=== PATIENT | female | born 1930 | race Caucasian/White ===

== ENCOUNTER 2017-06-15 08:07 | Day surgery (SDC) | payer MEDICARE, OTHER ==
[~2017-06-15 08:07] MED LIST: Lactated Ringers 1,000 ML IV SCH; Lidocaine 1%/Sod Bicarbonate in NS 8.4% 1 ML Syringe IDERM PRN; Sodium Chloride 0.9% 10 ML Syringe FLUSH PRN
--- NOTE | 2017-06-15 08:26 | PCM.PREANE ---
Preanesthetic Assessment - Procedure Proposed Procedure: EGD & Colonoscopy - Anesthesia/Transfusion/Family Hx Anesthesia History: Prior Anesthesia Without Reaction Family History of Anesthesia Reaction: No Transfusion History: No Prior Transfusion(s) - Review of Systems General: No Symptoms Pulmonary: No Symptoms Cardiovascular: No Symptoms Gastrointestinal: Diarrhea, Other (GERD history, not currently ) Neurological: Numbness (left hand, ? carpal tunnel syndrome ) Other: Reports: Thyroid Problems (hypothyroidism ) - Physical Assessment NPO Status Date: 06/14/17 NPO Status Time: 22:00 Pulse: 73 O2 Sat by Pulse Oximetry: 96 Respiratory Rate: 13 Blood Pressure: 178/88 Temperature: 36.8 C Height: 1.6 m ASA Class: 2 Mental Status: Alert & Oriented x3 Airway Class: Mallampati = 3 Dentition: Reports: Normal Dentition Thyro-Mental Finger Breadths: 3 Mouth Opening Finger Breadths: 5 ROM/Head Extension: Full Lungs: Clear to Auscultation, Normal Respiratory Effort Cardiovascular: Regular Rate, Regular Rhythm - Allergies Allergies/Adverse Reactions: Allergies Allergy/AdvReac Type Severity Reaction Status Date / Time No Known Allergies Allergy Verified 06/12/17 11:47 - Blood Blood Available: No - Acknowledgements Anesthesia Type Planned: MAC Pt an Appropriate Candidate for the Planned Anesthesia: Yes Alternatives and Risks of Anesthesia Discussed w Pt/Guardian: Yes Pt/Guardian Understands and Agrees with Anesthesia Plan: Yes PreAnesthesia Questionnaire HEENT History: Reports: Impaired Vision, Other (See Below) Other HEENT History: blurred vision, "flashing lights", wears glasses, impacted cerumen Cardiovascular History: Reports: Angina, Hypertension, PTCA (history of cardiac stents 11/01 , EF 70%) Respiratory History: Reports: SOB Gastrointestinal History: Reports: Chronic Diarrhea, Other (See Below) Other Gastrointestinal History: decreased spinchter tone, abdominal cramping, heme + stools Genitourinary History: Reports: UTI, Recurrent, Other (See Below) Other Genitourinary History: nocturia, cystocele Other OB/BYN History: cystocele Musculoskeletal History: Reports: Back Pain, Chronic, Gout, Other (See Below) Other Musculoskeletal History: leg cramps, lower extremity mononeuropathy, radiculopathy of leg, R hand parastehsia Neurological History: Reports: Headaches, Chronic, Other (See Below) Other Neuro History: dizziness, 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, paresthesias/ numbness to right hand Psychiatric History: Reports: Anxiety, Depression, Other (See Below) Other Psychiatric History: fatigue, insomnia Endocrine/Metabolic History: Reports: Hypothyroidism, Vitamin D Deficiency Hematologic History: Reports: None Immunologic History: Reports: None Oncologic (Cancer) History: Reports: None Dermatologic History: Reports: Other (See Below) Other Dermatologic History: xeroderma - Past Surgical History Head Surgeries/Procedures: Reports: None HEENT Surgical History: Reports: Cataract Surgery Cardiovascular Surgical History: Reports: None Respiratory Surgical History: Reports: None GI Surgical History: Reports: Appendectomy, Colonoscopy Female Surgical History: Reports: None Male Surgical History: Reports: None Endocrine Surgical History: Reports: None Neurological Surgical History: Reports: None Musculoskeletal Surgical History: Reports: Carpal Tunnel, Knee Replacement, Other (See Below) Other Musculoskeletal Surgeries/Procedures:: R total knee replacement Oncologic Surgical History: Reports: None - SUBSTANCE USE Smoking Status *Q: Former Smoker Second Hand Smoke Exposure: No Days Per Week of Alcohol Use: 0 Recreational Drug Use History: No - HOME MEDS Home Medications: Home Meds Aspirin [Ecotrin] 81 mg PO DAILY 09/26/15 [History] Calcium Carbonate [Calcium] 600 mg PO DAILY 09/26/15 [History] Levothyroxine Sodium [Synthroid] 75 mcg PO DAILY 09/26/15 [History] Losartan [Cozaar] 100 mg PO DAILY 09/26/15 [History] Riboflavin 200 mg PO DAILY 09/26/15 [History] Cholecalciferol (Vitamin D3) [Vitamin D3] 2,000 unit PO DAILY 06/12/17 [History] Loperamide HCl [Imodium A-D] 2 mg PO ASDIRECTED PRN 06/12/17 [History] Omeprazole 20 mg PO DAILY 06/12/17 [History] Ranitidine HCl [Zantac] 300 mg PO BEDTIME 06/12/17 [History] Trospium Chloride 20 mg PO BID 06/12/17 [History] amLODIPine Besylate [Norvasc] 2.5 mg PO DAILY 06/12/17 [History] - CURRENT (IN HOUSE) MEDS Current Meds: Current Medications Lactated Ringer's (Ringers, Lactated) 1,000 mls @ 125 mls/hr IV ASDIRECTED ISSA Stop: 06/15/17 23:00 Lidocaine/Sodium Bicarbonate (Buffered Lidocaine 1% In Ns 8.4%) 0.25 ml IDERM ONETIME PRN PRN Reason: Prior to IV Start Stop: 06/15/17 18:00 Sodium Chloride (Saline Flush) 10 ml FLUSH ASDIRECTED PRN PRN Reason: Keep Vein Open Stop: 06/15/17 18:00
[2017-06-15] MEDS ORDERED: Lidocaine 1% 4 ML ONE (09:24)
[2017-06-15] MEDS ORDERED: Propofol 200 MG/20 ML SDV ONE (09:25)
[2017-06-15] MEDS ORDERED: fentaNYL 100 MCG/2 ML SDV ONE (09:25)
--- NOTE | 2017-06-15 09:30 | PCM48HPAN ---
Post Anesthesia Note - EVALUATION WITHIN 48HRS OF ANESTHETIC Vital Signs in Normal Range: Yes Patient Participated in Evaluation: Yes Respiratory Function Stable: Yes Airway Patent: Yes Cardiovascular Function Stable: Yes Hydration Status Stable: Yes Pain Control Satisfactory: Yes Nausea and Vomiting Control Satisfactory: Yes Mental Status Recovered: Yes
[2017-06-15 10:13] VITALS: BP 165/91
--- NOTE | 2017-06-15 10:31 | PCM.OPNOTE ---
- General Post-Op/Procedure Note Date of Surgery/Procedure: 06/15/17 Operative Procedure(s): 1. Esophagogastroduodenoscopy. 2. Colonoscopy with biopsy of the right colon transverse colon descending colon sigmoid colon and rectum Findings: 1. Normal upper endoscopy 2. Anal tag 3. Internal hemorrhoids 4. Sigmoid diverticulosis 5. Endoscopic proctitis Pre Op Diagnosis: Chronic nonbloody diarrhea with abdominal pain Post-Op Diagnosis: 1. Anal takes with internal hemorrhoids. 2. Sigmoid diverticulosis. 3. Endoscopic proctitis Anesthesia Technique: MAC, Moderate Sedation Primary Surgeon: Merlin Awad Pathology: Right colon transverse descending and sigmoid colon biopsies. Rectal biopsies. EBL in mLs: 0 Complications: None Condition: Good Free Text/Narrative:: After adequate IV sedation and analgesia was obtained with monitoring the patient was placed on her left side. Through a bite-block a lubricated upper endoscope was inserted into the esophagus and advanced under direct vision to the stomach. Additional air was given in the stomach. The scope was advanced through the pylorus into the second part of the duodenum. The second and first parts were normal with no inflammatory changes or mass lesions. The antrum likewise was unremarkable. In the retroflexed view there was no hiatal hernia and gastric varices or inflammatory changes. The body of the stomach had mild mucosal atrophy but was normal. The GE junction was sharp and was unremarkable endoscopically. The body of the esophagus was normal. The vocal cords were briefly visualized on extubation and these structures were normal as well. Air was removed as I finished this part of the procedures which she tolerated well. Senior Caregiver photographs were taken for the patient and for the medical record. Perianal inspection revealed the anal tags with slightly prolapsing internal hemorrhoids. Digital rectal examination revealed normal sphincter tone. A lubricated colonoscope was inserted into the rectum then advanced through a slightly tortuous sigmoid to the cecum without difficulty. I briefly intubated the terminal ileum which was grossly normal. The cecum and right colons were endoscopically normal with no inflammatory changes and no mass lesions.. But given her history random biopsies were taken for histologic review. The sigmoid and descending colons also endoscopically normal with no mass lesions or inflammatory changes seen. Biopsies of both structures were done for histologic review. The sigmoid was tortuous and had circular muscle hypertrophy. There were a few scattered uncomplicated diverticuli. Random biopsies was taken in this area. The rectum had slight loss of mucosal vascularity suggesting mild inflammatory changes from edema This could also be due to the bowel preparation. 2 biopsies were taken in this area for review. Air was removed as I finished the procedure. The hemorrhoids were seen on antegrade view and on comp related. There were no procedural complications. Photographs were taken for the patient and for the medical record.
== END 2017-06-15 10:56 | disposition home or self-care (01) ==
LOC: JD.SDS 08:07
PROVIDERS: ATTEND Surgery
DX: K52.832 Lymphocytic colitis (principal); K62.89 Other specified diseases of anus and rectum; K64.4 Residual hemorrhoidal skin tags; K64.8 Other hemorrhoids; K57.30 Diverticulosis of large intestine without perforation or abscess without bleeding; K21.9 Gastro-esophageal reflux disease without esophagitis; I10 Essential (primary) hypertension; E03.9 Hypothyroidism, unspecified; G47.30 Sleep apnea, unspecified; R35.1 Nocturia; E55.9 Vitamin D deficiency, unspecified; M10.9 Gout, unspecified; F41.9 Anxiety disorder, unspecified; F32.9 Major depressive disorder, single episode, unspecified; Z79.899 Other long term (current) drug therapy; Z79.82 Long term (current) use of aspirin; Z90.49 Acquired absence of other specified parts of digestive tract; Z98.890 Other specified postprocedural states; Z95.5 Presence of coronary angioplasty implant and graft; Z96.651 Presence of right artificial knee joint
CPT/HCPCS: 88305; J2704; J3010; J7120